=== PATIENT | female | born 1975 | race Caucasian/White ===

== ENCOUNTER 2016-10-01 18:12 | Emergency (ER) | payer OTHER ==
--- NOTE | 2016-10-01 18:36 | ED NURSING NOTES ---
Clinical Report - Nurses [address] [place] [address] 10/01/2016 18:17 Patient: BELLE LAW TRIAGE Triage time 1823. Acuity: LEVEL 4. Chief Complaint: RIGHT LOWER EXTREMITY PAIN and SWELLING. Location of symptoms- (top of rt foot, and at 5th toe , some redness and warmth noted). 18:23. --18:29 Prerna Serrano R.N. 18:23 10/01/16. BP: 117/77. HR: 82. RR: 18. O2 saturation: 100%. Temp: 98.4 F. Pain level now 5/10. --18:29 Prerna Serrano R.N. Weight: 54.4 kg stated. Height/Length: 63 inches Per Patient. BMI: 21.2. --18:24 Prerna Serrano R.N. Medications None. --18:28 Prerna Serrano R.N. Tylenol 650mg last night . --18:29 Prerna Serrano R.N. Allergies Hydrocodone. (GI upset ) Penicillins. (BP drops, hives) --18:27 Prerna Serrano R.N. History Arrived by private vehicle. Historian: patient. Accompanied by (Dad). An injury may have occurred. This occurred yesterday. ( pt not sure why foot is painful and swollen). She has had swelling, redness and trouble walking. PAST MEDICAL HX: Negative. SURGERY HX: No history of previous surgery. SOCIAL HX: Heavy tobacco smoker (cigarette)- 1 pack per day. No alcohol use or drug use. --18:29 Prerna Serrano R.N. PROBLEMS: no known problems. ADDITIONAL SURGERIES: no known surgeries. Interventions ID band on patient. To treatment room. --18:29 Prerna Serrano R.N. PHYSICAL ASSESSMENT 18:23. Ambulatory to room. Patient gowned. GENERAL / NEURO / PSYCH: Oriented X 4. Appears in no acute distress. EXTREMITIES: Right foot: tenderness, swelling and erythema. ( limping gait). SKIN: ( mostly c/o pain to 5th toe). --18:30 Prerna Serrano R.N. NURSING PROGRESS NOTES 18:23. Cold pack applied. Reassurance given. Patient identifiers checked. Call light placed in reach. Side rails up. Bed placed in lowest position. Patient ready for evaluation- chart flagged. --18:29 Prerna Serrano R.N. DISPOSITION / DISCHARGE 18:45. Condition at departure: unchanged and stable. No learning barriers present. Discharge instructions provided and reviewed with the patient. Reviewed medication(s) (keflex, colchicine). Patient verbalized understanding. Written instructions provided in Indian. The patient was discharged home and accompanied by parent. She left the Emergency Department ambulatory and via private vehicle. Parent driving. --18:51 Prerna Serrano R.N. 18:50 10/01/16. BP: deferred. HR: deferred. RR: deferred. O2 saturation: deferred. Temp: deferred. Pain level now: 07/01. --18:51 Prerna Serrano R.N. Locked/Released at 10/01/2016 18:52 by Prerna Serrano R.N.
--- NOTE | 2016-10-01 18:36 | ED NURSING NOTES ---
Clinical Report - Nurses [facility] [address] [place] [address] 10/01/2016 18:17 Patient: BELLE LAW TRIAGE Triage time 1823. Acuity: LEVEL 4. Chief Complaint: RIGHT LOWER EXTREMITY PAIN and SWELLING. Location of symptoms- (top of rt foot, and at 5th toe , some redness and warmth noted). 18:23. --18:29 Prerna Serrano R.N. 18:23 10/01/16. BP: 117/77. HR: 82. RR: 18. O2 saturation: 100%. Temp: 98.4 F. Pain level now 5/10. --18:29 Prerna Serrano R.N. Weight: 54.4 kg stated. Height/Length: 63 inches Per Patient. BMI: 21.2. --18:24 Prerna Serrano R.N. Medications None. --18:28 Prerna Serrano R.N. Tylenol 650mg last night . --18:29 Prerna Serrano R.N. Allergies Hydrocodone. (GI upset ) Penicillins. (BP drops, hives) --18:27 Prerna Serrano R.N. History Arrived by private vehicle. Historian: patient. Accompanied by (Dad). An injury may have occurred. This occurred yesterday. ( pt not sure why foot is painful and swollen). She has had swelling, redness and trouble walking. PAST MEDICAL HX: Negative. SURGERY HX: No history of previous surgery. SOCIAL HX: Heavy tobacco smoker (cigarette)- 1 pack per day. No alcohol use or drug use. --18:29 Prerna Serrano R.N. PROBLEMS: no known problems. ADDITIONAL SURGERIES: no known surgeries. Interventions ID band on patient. To treatment room. --18:29 Prerna Serrano R.N. PHYSICAL ASSESSMENT 18:23. Ambulatory to room. Patient gowned. GENERAL / NEURO / PSYCH: Oriented X 4. Appears in no acute distress. EXTREMITIES: Right foot: tenderness, swelling and erythema. ( limping gait). SKIN: ( mostly c/o pain to 5th toe). --18:30 Prerna Serrano R.N. NURSING PROGRESS NOTES 18:23. Cold pack applied. Reassurance given. Patient identifiers checked. Call light placed in reach. Side rails up. Bed placed in lowest position. Patient ready for evaluation- chart flagged. --18:29 Prerna Serrano R.N. DISPOSITION / DISCHARGE 18:45. Condition at departure: unchanged and stable. No learning barriers present. Discharge instructions provided and reviewed with the patient. Reviewed medication(s) (keflex, colchicine). Patient verbalized understanding. Written instructions provided in Sudanese. The patient was discharged home and accompanied by parent. She left the Emergency Department ambulatory and via private vehicle. Parent driving. --18:51 Prerna Serrano R.N. 18:50 10/01/16. BP: deferred. HR: deferred. RR: deferred. O2 saturation: deferred. Temp: deferred. Pain level now: 07/01. --18:51 Prerna Serrano R.N. Locked/Released at 10/01/2016 18:52 by Prerna Serrano R.N.
--- NOTE | 2016-10-01 18:36 | ED CLINICAL REPORT ---
Clinical Report - Physicians/Mid Levels [facility] [address] [place] [address] 10/01/2016 18:17 Patient: BELLE LAW Time Seen: 18:20; initial patient contact, initial documentation, patient care assumed. Arrived- By private vehicle. Historian- patient. HISTORY OF PRESENT ILLNESS Chief Complaint: Injury to the right foot. The injury happened yesterday. ( does not recall any injury/trauma). Patient is experiencing mild pain. Patient denies injury to the head or neck. No other injury. (foot got red and swollen). REVIEW OF SYSTEMS The patient complains of pain on weight bearing. She has had swelling. No tingling, weakness, numbness, suspected foreign body or skin laceration. All systems otherwise negative, except as recorded above. PAST HISTORY Negative. SOCIAL HISTORY Heavy tobacco smoker. No alcohol use or drug use. No recent travel. Is a local resident. FAMILY HISTORY No significant family medical history. ADDITIONAL NOTES The nursing notes have been reviewed with agreement regarding the chief complaint, HPI, ROS, PMH and patient medications and allergies. PHYSICAL EXAM Vital Signs: 10/01/2016 18:23 BP: 117/77. HR: 82. RR: 18. O2 saturation: 100%. Temp: 98.4 F. Have been reviewed as normal and appear to be correct. Appearance: Alert. Oriented X3. No acute distress. Head: Head atraumatic. Eyes: Pupils equal, round and reactive to light. Eyes normal inspection. Respiratory: No respiratory distress. Skin: Skin intact. Skin warm and dry. Extremities: Foot injury present. Right dorsal foot: mild erythema, tenderness and swelling of the distal aspect, central and lateral aspect of the dorsal foot. Neurovascular intact distally. (metatarsal 3,4&5 area). No ligamentous laxity present. No laceration, abrasion, ecchymosis, puncture wound or foreign body. No deformity. No limitation in movement. No ankle injury. Foot and ankle exam otherwise negative. Extremities otherwise negative. Gait: Abnormal gait. (gait not tested, pt already in room in bed). Neuro, Vascular and Tendons: Vascular status intact. Sensation intact. Motor intact. Tendon function intact. Neuro: Oriented X 3. No motor deficit. No sensory deficit. Note: isolated issue to foot. PROGRESS AND PROCEDURES Patient counseled in person regarding the patient's stable condition and diagnosis. Differential Diagnosis: Other possible considerations: gout, cellulitis, insect bite/sting, fungus, mrsa, abscess. Above considerations are based on history and physical exam. Differential diagnosis was discussed with patient. Disposition: Discharged home in good and unchanged condition (18:35). Condition: good and stable. 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 INSTRUCTIONS Warnings: GENERAL WARNINGS: Return or contact your physician immediately if your condition worsens or changes unexpectedly, if not improving as expected, or if other problems arise. Specifically return if problem worsens. Prescription Medications: Cephalexin 500mg: take 1 tab orally every 6 hours for 7 days. No refills Colchicine 0.6 mg tablets: take 1 tablet orally every 1-2 hours as needed. Do not take more than 4mg in one day. Dispense twenty (20). No refills. Follow-up: Follow up with your doctor in about three days as needed. Call for an appointment. Summary of care provided to patient. Understanding of the discharge instructions verbalized by patient. (Electronically signed by Jennifer Laws A.R.N.P. 10/01/2016 23:50)
--- NOTE | 2016-10-01 23:51 | ED MAR SUMMARY ---
..... Medication Administration Record [facility] [address], [place] [id number] Patient: BELLE LAW Visit ID: [id number] 41y, F Weight: 54.4 kg Height/Length: 63 in BMI: 21.2 ALLERGIES: Penicillins, Hydrocodone
--- NOTE | 2016-10-01 23:51 | ED MED RECONCILIATION SUMMARY ---
Patient: BELLE LAW Medication Reconciliation Report [facility] VisitID: [id number] [address] [place] [address] 41y, F Registration Date/Time: 10/01/2016 Weight: 54.4 kg Height/Length: 63 in. BMI: 21.3 ALLERGIES: Hydrocodone, Penicillins The patient's Home Medications are listed below: THE FOLLOWING MEDICATIONS NEED TO BE RECONCILED: Tylenol 650mg last night The source(s) of the original Home Medication information: Not obtained. The following Medications were given to the patient in the Emergency Department: None. The following Medications were prescribed to the patient: Cephalexin 500mg: take 1 tab orally every 6 hours for 7 days. No refills -- Jennifer Laws A.R.N.P. Colchicine 0.6 mg tablets: take 1 tablet orally every 1-2 hours as needed. Do not take more than 4mg in one day. Dispense twenty (20). No refills. -- Jennifer Laws A.R.N.P.
--- NOTE | 2016-10-01 23:51 | ED MED RECONCILIATION SUMMARY ---
Patient: BELLE LAW Medication Reconciliation Report [facility] VisitID: [id number] [address] [place] [address] 41y, F Registration Date/Time: 10/01/2016 Weight: 54.4 kg Height/Length: 63 in. BMI: 21.3 ALLERGIES: Hydrocodone, Penicillins The patient's Home Medications are listed below: THE FOLLOWING MEDICATIONS NEED TO BE RECONCILED: Tylenol 650mg last night The source(s) of the original Home Medication information: Not obtained. The following Medications were given to the patient in the Emergency Department: None. The following Medications were prescribed to the patient: Cephalexin 500mg: take 1 tab orally every 6 hours for 7 days. No refills -- Jennifer Laws A.R.N.P. Colchicine 0.6 mg tablets: take 1 tablet orally every 1-2 hours as needed. Do not take more than 4mg in one day. Dispense twenty (20). No refills. -- Jennifer Laws A.R.N.P.
--- NOTE | 2016-10-01 23:51 | ED DISCHARGE INSTRUCTIONS ---
Patient: BELLE LAW General Instructions [facility] VisitID: [id number] [place] [address] 41y, F Registration Date/Time: 10/01/2016 Acute idiopathic gout with polyarthritis involving the right side. INSTRUCTIONS Warnings: GENERAL WARNINGS: Return or contact your physician immediately if your condition worsens or changes unexpectedly, if not improving as expected, or if other problems arise. Specifically return if problem worsens. Prescription Medications: Cephalexin 500mg: take 1 tab orally every 6 hours for 7 days. No refills Colchicine 0.6 mg tablets: take 1 tablet orally every 1-2 hours as needed. Do not take more than 4mg in one day. Dispense twenty (20). No refills. Follow-up: Follow up with your doctor in about three days as needed. Call for an appointment. Summary of care provided to patient. Understanding of the discharge instructions verbalized by patient. ADDITIONAL INFORMATION Gout Gout or "gouty arthritis" is an inflammation of a joint due to a build-up of gout crystals in the joint fluid. This occurs when there is an excess uric acid (a normal waste product) in the body. Uric acid builds up in the body when the kidneys are unable to filter enough of it from the blood. This may occur with aging or kidney disease. Gout occurs more often in persons with obesity, diabetes, hypertension, high fats in the blood. It may be present in other family members. Alcohol and certain foods (such as shellfish and alcohol) may increase uric acid levels in the blood and cause a gout attack. Gout causes a hot, red, swollen and painful joint. If you have had one episode of gout, you are likely to have another. An acute attack of gout can be treated with anti-inflammatory and other medicine. If these attacks become frequent it may be necessary to take a daily medicine to help the kidney remove uric acid from the body. Home Care: Apply an ice pack (ice cubes in a plastic bag, wrapped in a towel) over the injured area for 20 minutes every 1-2 hours the first day for pain relief. Continue this 3-4 times a day until the pain and swelling goes away. Avoid alcohol and foods listed below (see Prevention) during a gout attack. Drink extra fluid to help flush the uric acid through your kidneys. Rest painful joints. If gout affects the joints of your foot or leg, you may want to use crutches for the first few days to keep from bearing weight on the foot or leg. Take anti-inflammatory medicine as directed. You may be prescribed Indocin (indomethacin), or [id number] drugs such as ibuprofen (Motrin, Advil) or naproxen (Naprosyn or Aleve). Tylenol will not be as effective since it is not an anti-inflammatory drug. If narcotic pain medicines have been prescribed, they should be used in addition to the anti-inflammatory drugs and only for severe pain. Avoid aspirin since this may slow down the flushing of the uric acid through your kidneys. Preventing Future Attacks: Minimize or avoid alcohol use. Excess alcohol intake can cause a gout attack. Foods high in purine form uric acid in the body and increase your risk for a gout attack. Therefore, avoid the following foods: certain seafoods (anchovies, sardines, shrimp, scallops, charles, mackerel); wild game, meat extracts and meat gravies; organ foods (kidney, liver, calf brain, sweetbreads). Avoid drinks with fructose (a type of sugar). Limit the following foods to one serving a day: red meat and pork, fish, poultry, dried beans and peas, asparagus, mushrooms, cauliflower and spinach. If you are overweight, this is a risk factor and you should talk to your doctor about a weight reduction plan. However, avoid fasting or extreme low calorie diets (less than 900 marietta/day) which will increase uric acid levels in the body. If you are diabetic or have high blood pressure, work with your doctor to achieve control of these conditions. Avoid injury to the involved joint since this can lead to a gout attack. Colchicine can be effective in stopping a gout attack. If you were given a prescription of this medicine for future use, begin it at the first sign of an attack. Colchicine may cause nausea, vomiting, diarrhea and other side effects. Follow Up with your doctor as advised or if you are not improving after three days of treatment. Get Prompt Medical Attention if any of the following occur: Fever over 100.4F (38.0C) with worsening joint pain Increasing redness around the joint Pain developing in another joint Repeated vomiting, abdominal pain, or blood in the vomit or stool (black or red color) Cephalexin Monohydrate Oral tablet What is this medicine? CEPHALEXIN (sef a GRETCHEN in) is a cephalosporin antibiotic. It is used to treat certain kinds of bacterial infections It will not work for colds, flu, or other viral infections. How should I use this medicine? Take this medicine by mouth with a full glass of water. Follow the directions on the prescription label. This medicine can be taken with or without food. Take your medicine at regular intervals. Do not take your medicine more often than directed. Take all of your medicine as directed even if you think you are better. Do not skip doses or stop your medicine early. Talk to your human resources department supervisor regarding the use of this medicine in children. While this drug may be prescribed for selected conditions, precautions do apply. What side effects may I notice from receiving this medicine? Side effects that you should report to your doctor or health prompt care rn as soon as possible: allergic reactions like skin rash, itching or hives, swelling of the face, lips, or tongue breathing problems pain or trouble passing urine redness, blistering, peeling or loosening of the skin, including inside the mouth severe or watery diarrhea unusually weak or tired yellowing of the eyes, skin Side effects that usually do not require medical attention (report to your doctor or health prompt care rn if they continue or are bothersome): gas or heartburn genital or anal irritation headache joint or muscle pain nausea, vomiting What may interact with this medicine? probenecid some other antibiotics What if I miss a dose? If you miss a dose, take it as soon as you can. If it is almost time for your next dose, take only that dose. Do not take double or extra doses. There should be at least 4 to 6 hours between doses. Where should I keep my medicine? Keep out of the reach of children. Store at room temperature between 59 and 86 degrees F (15 and 30 degrees C). Throw away any unused medicine after the expiration date. What should I tell my health care provider before I take this medicine? They need to know if you have any of these conditions: kidney disease stomach or intestine problems, especially colitis an unusual or allergic reaction to cephalexin, other cephalosporins, penicillins, other antibiotics, medicines, foods, dyes or preservatives or trying to get breast-feeding What should I watch for while using this medicine? Tell your doctor or health prompt care rn if your symptoms do not begin to improve in a few days. Do not treat diarrhea with over the counter products. Contact your doctor if you have diarrhea that lasts more than 2 days or if it is severe and watery. If you have diabetes, you may get a false-positive result for sugar in your urine. Check with your doctor or health prompt care rn. You have been given the following additional information: Gouty Arthritis Cephalexin Monohydrate Oral tablet (Electronically signed by Jennifer Laws A.R.N.P. 10/01/2016 23:50)
--- NOTE | 2016-10-01 23:51 | ED DISCHARGE INSTRUCTIONS ---
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 INSTRUCTIONS Warnings: GENERAL WARNINGS: Return or contact your physician immediately if your condition worsens or changes unexpectedly, if not improving as expected, or if other problems arise. Specifically return if problem worsens. Prescription Medications: Cephalexin 500mg: take 1 tab orally every 6 hours for 7 days. No refills Colchicine 0.6 mg tablets: take 1 tablet orally every 1-2 hours as needed. Do not take more than 4mg in one day. Dispense twenty (20). No refills. Follow-up: Follow up with your doctor in about three days as needed. Call for an appointment. Summary of care provided to patient. Understanding of the discharge instructions verbalized by patient. ADDITIONAL INFORMATION Gout Gout or "gouty arthritis" is an inflammation of a joint due to a build-up of gout crystals in the joint fluid. This occurs when there is an excess uric acid (a normal waste product) in the body. Uric acid builds up in the body when the kidneys are unable to filter enough of it from the blood. This may occur with aging or kidney disease. Gout occurs more often in persons with obesity, diabetes, hypertension, high fats in the blood. It may be present in other family members. Alcohol and certain foods (such as shellfish and alcohol) may increase uric acid levels in the blood and cause a gout attack. Gout causes a hot, red, swollen and painful joint. If you have had one episode of gout, you are likely to have another. An acute attack of gout can be treated with anti-inflammatory and other medicine. If these attacks become frequent it may be necessary to take a daily medicine to help the kidney remove uric acid from the body. Home Care: Apply an ice pack (ice cubes in a plastic bag, wrapped in a towel) over the injured area for 20 minutes every 1-2 hours the first day for pain relief. Continue this 3-4 times a day until the pain and swelling goes away. Avoid alcohol and foods listed below (see Prevention) during a gout attack. Drink extra fluid to help flush the uric acid through your kidneys. Rest painful joints. If gout affects the joints of your foot or leg, you may want to use crutches for the first few days to keep from bearing weight on the foot or leg. Take anti-inflammatory medicine as directed. You may be prescribed Indocin (indomethacin), or hnzs-nls-dnkawib drugs such as ibuprofen (Motrin, Advil) or naproxen (Naprosyn or Aleve). Tylenol will not be as effective since it is not an anti-inflammatory drug. If narcotic pain medicines have been prescribed, they should be used in addition to the anti-inflammatory drugs and only for severe pain. Avoid aspirin since this may slow down the flushing of the uric acid through your kidneys. Preventing Future Attacks: Minimize or avoid alcohol use. Excess alcohol intake can cause a gout attack. Foods high in purine form uric acid in the body and increase your risk for a gout attack. Therefore, avoid the following foods: certain seafoods (anchovies, sardines, shrimp, scallops, charles, mackerel); wild game, meat extracts and meat gravies; organ foods (kidney, liver, calf brain, sweetbreads). Avoid drinks with fructose (a type of sugar). Limit the following foods to one serving a day: red meat and pork, fish, poultry, dried beans and peas, asparagus, mushrooms, cauliflower and spinach. If you are overweight, this is a risk factor and you should talk to your doctor about a weight reduction plan. However, avoid fasting or extreme low calorie diets (less than 900 marietta/day) which will increase uric acid levels in the body. If you are diabetic or have high blood pressure, work with your doctor to achieve control of these conditions. Avoid injury to the involved joint since this can lead to a gout attack. Colchicine can be effective in stopping a gout attack. If you were given a prescription of this medicine for future use, begin it at the first sign of an attack. Colchicine may cause nausea, vomiting, diarrhea and other side effects. Follow Up with your doctor as advised or if you are not improving after three days of treatment. Get Prompt Medical Attention if any of the following occur: Fever over 100.4F (38.0C) with worsening joint pain Increasing redness around the joint Pain developing in another joint Repeated vomiting, abdominal pain, or blood in the vomit or stool (black or red color) Cephalexin Monohydrate Oral tablet What is this medicine? CEPHALEXIN (sef a GRETCHEN in) is a cephalosporin antibiotic. It is used to treat certain kinds of bacterial infections It will not work for colds, flu, or other viral infections. How should I use this medicine? Take this medicine by mouth with a full glass of water. Follow the directions on the prescription label. This medicine can be taken with or without food. Take your medicine at regular intervals. Do not take your medicine more often than directed. Take all of your medicine as directed even if you think you are better. Do not skip doses or stop your medicine early. Talk to your power press tender regarding the use of this medicine in children. While this drug may be prescribed for selected conditions, precautions do apply. What side effects may I notice from receiving this medicine? Side effects that you should report to your doctor or health direct care specialist as soon as possible: allergic reactions like skin rash, itching or hives, swelling of the face, lips, or tongue breathing problems pain or trouble passing urine redness, blistering, peeling or loosening of the skin, including inside the mouth severe or watery diarrhea unusually weak or tired yellowing of the eyes, skin Side effects that usually do not require medical attention (report to your doctor or health direct care specialist if they continue or are bothersome): gas or heartburn genital or anal irritation headache joint or muscle pain nausea, vomiting What may interact with this medicine? probenecid some other antibiotics What if I miss a dose? If you miss a dose, take it as soon as you can. If it is almost time for your next dose, take only that dose. Do not take double or extra doses. There should be at least 4 to 6 hours between doses. Where should I keep my medicine? Keep out of the reach of children. Store at room temperature between 59 and 86 degrees F (15 and 30 degrees C). Throw away any unused medicine after the expiration date. What should I tell my health care provider before I take this medicine? They need to know if you have any of these conditions: kidney disease stomach or intestine problems, especially colitis an unusual or allergic reaction to cephalexin, other cephalosporins, penicillins, other antibiotics, medicines, foods, dyes or preservatives or trying to get breast-feeding What should I watch for while using this medicine? Tell your doctor or health direct care specialist if your symptoms do not begin to improve in a few days. Do not treat diarrhea with over the counter products. Contact your doctor if you have diarrhea that lasts more than 2 days or if it is severe and watery. If you have diabetes, you may get a false-positive result for sugar in your urine. Check with your doctor or health direct care specialist. You have been given the following additional information: Gouty Arthritis Cephalexin Monohydrate Oral tablet (Electronically signed by Jennifer Laws A.R.N.P. 10/01/2016 23:50)
--- NOTE | 2016-10-01 23:51 | ED MAR SUMMARY ---
..... Medication Administration Record [facility] [address] [place], [place] [id number] Patient: BELLE LAW Visit ID: [id number] 41y, F Weight: 54.4 kg Height/Length: 63 in BMI: 21.2 ALLERGIES: Penicillins, Hydrocodone
== END 2016-10-01 18:45 | disposition home or self-care (01) ==
LOC: ED SRH 18:12
DX: M10.071 Idiopathic gout, right ankle and foot (principal); M13.0 Polyarthritis, unspecified; X58.XXXA Exposure to other specified factors, initial encounter; Y93.9 Activity, unspecified; Y92.9 Unspecified place or not applicable; Y99.9 Unspecified external cause status; F17.210 Nicotine dependence, cigarettes, uncomplicated; Z88.0 Allergy status to penicillin; Z88.5 Allergy status to narcotic agent